=== PATIENT | female | born 1990 | race Caucasian/White ===

== ENCOUNTER 2023-10-16 06:30 | Inpatient (IN) | payer BC ==
[~2023-10-16] VITALS: Ht 152.4 cm; Wt 90.3 kg
[2023-10-16] MEDS ORDERED: NALBUPHINE 10 MG/ML AMP IVP PRN (07:30)
[2023-10-16] MEDS ORDERED: MISOPROSTOL 25 MCG TAB VG PRN (07:30)
[2023-10-16] MEDS ORDERED: LACTATED RINGERS 1,000 ML IV SCH (07:30)
[2023-10-16] MEDS ORDERED: CARBOPROST 250 MCG/ML AMP IM PRN (07:30)
[2023-10-16] MEDS ORDERED: OXYTOCIN 20 UNITS in LACTATED RINGERS 1,000 ML IV SCH (07:30)
[2023-10-16] MEDS ORDERED: METHYLERGONOVINE 0.2 MG/ML AMP IM PRN ×2 (07:30→17:10)
[2023-10-16] MEDS ORDERED: AMPICILLIN 2,000 MG in NACL 0.9% MINI-BAG PLUS 100 ML IV SCH (08:00)
[2023-10-16 08:25] LABS: BASOPHILS % (AUTO) 0.5 % (0.0-2.0); EOSINOPHILS % (AUTO) 0.5 % (0.0-4.0); HEMATOCRIT 29.3 % (36-48); HEMOGLOBIN 9.5 g/dL (12.0-16.0); LYMPHOCYTES # (AUTO) 2.1 K/uL (2.5-16.5); LYMPHOCYTES % (AUTO) 26.5 % (20.5-51.1); MEAN CORPUSCULAR HEMOGLOBIN 23 pg (27-31); MEAN CORPUSCULAR HGB CONC 32 g/dL (33-37); MEAN CORPUSCULAR VOLUME 71.5 fL (80-94); MONOCYTES # (AUTO) 0.7 K/uL (0.8-1.0); MONOCYTES % (AUTO) 8.7 % (1.7-9.3); NEUTROPHILS # (AUTO) 5.1 K/uL (1.8-7.7); NEUTROPHILS % (AUTO) 63.8 % (42.2-75.2); PLATELET COUNT (AUTO) 173 K/uL (140-450); RED CELL DISTRIBUTION WIDTH 16.2 % (11.6-13.7); WHITE BLOOD COUNT (AUTO) 8.1 K/uL (4.8-10.8)
[2023-10-16 08:35] LABS: BILIRUBIN,URINE NEGATIVE (NEGATIVE); BLOOD, URINE TRACE-I (NEGATIVE); COLOR,URINE YELLOW (YELLOW); LEUKOCYTE ESTERASE ,URINE 3+ (NEGATIVE); NITRITE, URINE NEGATIVE (NEGATIVE); PH,URINE 6.5 (5.0-9.0); PROTEIN,URINE NEGATIVE (NEGATIVE); UGLUCOSE TRACE (NEGATIVE); UROBILINOGEN,URINE 0.2 EU/dL (0.2 - 1)
[2023-10-16] MEDS ORDERED: MISOPROSTOL 25 MCG TAB ONE (08:42)
[2023-10-16 08:52] LABS: APPEARANCE,URINE SLIGHTLY CLOUDY (CLEAR); RBC,URINE 0-5 /HPF (0-5)
[2023-10-16 08:53] LABS: BACTERIA,URINE 1+ /HPF (None Seen); MUCUS,URINE 1+ /LPF (None Seen); SQUAMOUS EPITHELIAL CELL,UR 0-3 (FEW) /LPF (0-3 (FEW))
[2023-10-16 08:54] LABS: INR 0.92 (0.8-1.2); PROTHROMBIN TIME 9.7 secs (10.8-13.4)
[2023-10-16 08:56] LABS: ALBUMIN 2.2 g/dL (3.4-5.0); ANION GAP 12.5 (8-16); CALCIUM 8.4 mg/dL (8.5-10.1); CARBON DIOXIDE 21.2 mmol/L (21-32); CREATININE 0.6 mg/dL (0.6-1.3); POTASSIUM 3.7 mmol/L (3.5-5.1); TOTAL BILIRUBIN 0.2 mg/dL (0.0-1.0); TOTAL PROTEIN, SERUM 7.1 g/dL (6.4-8.2)
[2023-10-16] MEDS ORDERED: AMPICILLIN 1,000 MG in NACL 0.9% MINI-BAG PLUS 50 ML IV SCH (12:00)
[2023-10-16] MEDS ORDERED: ROPIVACAINE 0.2%/NS PREMIX 0 ML EPI ONE (13:33)
[2023-10-16] MEDS ORDERED: BUPIVACAINE MPF 0.25% 10 ML VIAL INJ ONE (13:35)
[2023-10-16] MEDS ORDERED: BUPIVACAINE-MPF 0.5% 30 ML VIAL INJ ONE (13:38)
[2023-10-16] MEDS ORDERED: AMPICILLIN 2,000 MG VIAL ONE (14:20)
[2023-10-16] MEDS ORDERED: OXYTOCIN 20 UNITS/LR PREMIX 1,000 ML IV ONE (15:01)
[2023-10-16] MEDS ORDERED: LIDOCAINE 1% 500 MG/ 50 ML VIAL INJ ONE (15:35)
[2023-10-16] MEDS ORDERED: BENZOCAINE/MENTHOL 20%-0.5% 60 GM CAN TP PRN (17:10)
[2023-10-16] MEDS ORDERED: OXYTOCIN 10 UNITS/ML VIAL IM PRN (17:10)
[2023-10-16] MEDS ORDERED: TEMAZEPAM 15 MG CAP PO PRN (17:10)
[2023-10-16] MEDS ORDERED: METHYLERGONOVINE 0.2 MG TAB PO PRN (17:10)
[2023-10-16] MEDS ORDERED: oxyCODONE/APAP 5/325 MG 1 TAB TAB PO PRN ×2 (17:10)
[2023-10-16] MEDS ORDERED: DOCUSATE SOD/SENNA 50/8.6 MG 1 TAB PO SCH (21:00)
[2023-10-17 05:44] LABS: HEMOGLOBIN 7.7 g/dL (12.0-16.0)
[2023-10-17] MEDS: IBUPROFEN 800 MG TAB PO PRN ×2 (14:43→21:22)
[2023-10-17] MEDS: FERROUS SULFATE 325 MG TABEC PO SCH (17:00)
[2023-10-18] MEDS: FERROUS SULFATE 325 MG TABEC PO SCH (08:00)
[2023-10-18] MEDS: IBUPROFEN 800 MG TAB PO PRN (08:59)
== END 2023-10-18 16:55 | disposition home or self-care (01) | DRG 807 ==
LOC: MLD 06:30 → OBSVTOIN 07:15 → MFCC 21:31
PROVIDERS: ADMIT Obstetrics & Gynecology; ATTEND Obstetrics & Gynecology
PROC: 10E0XZZ Delivery of Products of Conception, External Approach (ICD-10-PCS; principal; 2023-10-16)
PROC: 3E0DXGC Introduction of Other Therapeutic Substance into Mouth and Pharynx, External Approach (ICD-10-PCS; 2023-10-16)
DX: O48.0 Post-term pregnancy (principal); Z37.0 Single live birth; Z3A.40 40 weeks gestation of pregnancy; O99.824 Streptococcus B carrier state complicating childbirth
CPT/HCPCS: 36415; 59200; 59409; 80053; 81001; 85018; 85025; 85610; 85730; 86592; 86886; 86900; 86901; 87086; J0290; J2001; J2300; J2590; J2795; J3490